=== PATIENT | female | born 1930 | race Caucasian/White ===

== ENCOUNTER 2017-04-07 11:48 | Inpatient (IN) | payer MEDICARE ==
[~2017-04-07] VITALS: Ht 167.6 cm; Wt 72.0 kg
[~2017-04-07 11:48] MED LIST: ACTONEL35 MG OR; CALCIUM D- OR; CALCIUM600 M3 OR; CHILD ASA81 MG OR; DIGOXIN0.05 MG/ML OR; DILTIAZEM120 M3 OR; FISH OIL1000 MG OR; FOSAMAX70 MG OR; FOSINOPRIL10 MG OR; LANOXIN0.25 MG OR; LIPITOR10 MG OR; VITAMIN C500 M1 OR; ZOCOR20 MG OR
[2017-04-07 12:30] VITALS: BP 140/70
[2017-04-07 13:31] LABS: HEMOGLOBIN 9.5 g/dl (12.0-16.0); IMMATURE GRANULOCYTES 1.5 % (0.0-1.0); MEAN CELL VOLUME 89.3 fL CALC (80.0-100.0); MEAN CORPUSCULAR HGB 28.3 pG CALC (26.0-32.0); MEAN CORPUSCULAR HGB CONC 31.7 g/L CALC (32.0-36.0); NEUT# 11.42 thou/uL (2.00-7.15); RED BLOOD COUNT 3.36 mill/uL (4.20-5.60); RED CELL DISTRI WIDTH 16.3 % (11.5-15.5)
[2017-04-07 13:50] LABS: ALBUMIN 3.2 g/dL (3.2-5.0); BILIRUBIN, TOTAL 0.6 mg/dL (0.0-1.4); CALCIUM 8.5 mg/dL (8.4-10.2); TOTAL PROTEIN 6.3 g/dL (6.3-8.2)
[2017-04-07 13:51] LABS: PROTHROMBIN TIME 11.3 SECONDS (9.0-12.5)
[2017-04-07 13:58] LABS: CREATININE 5.6 mg/dL (0.5-1.0); POTASSIUM 5.3 mmol/l (3.5-5.1)
[2017-04-07 14:58] VITALS: BP 178/67
[2017-04-07 15:40] LABS: URINE BILIRUBIN - DIPSTICK NEGATIVE (NEGATIVE); URINE BLOOD DIPSTICK LARGE (NEGATIVE); URINE CLARITY CLEAR; URINE COLOR YELLOW; URINE GLUCOSE - DIPSTICK NEGATIVE (NEGATIVE); URINE KETONE NEGATIVE (NEGATIVE); URINE LEUK ESTERASE NEGATIVE (NEGATIVE); URINE NITRITE - DIPSTICK NEGATIVE (Negative); URINE PROTEIN - DIPSTICK >=300 mg/dL (NEG-TRACE); URINE UROBILINOGEN - DIPSTICK 0.2 E.U./dL (0.2)
[2017-04-07 15:52] LABS: URINE BACTERIA FEW hpf; URINE RBC 25-50 RBC/hpf (0-5); URINE YEAST FEW hpf
[2017-04-07] MEDS ORDERED: AMLODIPINE BESYL5 MG PO (16:02)
[2017-04-07] MEDS ORDERED: COZAAR100 MG PO (16:02)
[2017-04-07] MEDS ORDERED: ASPIRIN EC325 MG PO (16:03)
[2017-04-07] MEDS ORDERED: COREG25 MG PO (16:03)
[2017-04-07 19:35] VITALS: BP 144/52
[2017-04-08] VITALS (10 sets, daily range): BP systolic 150–166; BP diastolic 56–75
[2017-04-08 07:16] LABS: HEMATOCRIT 25.8 % (37.0-47.0); HEMOGLOBIN 8.3 g/dl (12.0-16.0); IMMATURE GRANULOCYTES 1.6 % (0.0-1.0); MEAN CELL VOLUME 89.9 fL CALC (80.0-100.0); MEAN CORPUSCULAR HGB 28.9 pG CALC (26.0-32.0); MEAN CORPUSCULAR HGB CONC 32.2 g/L CALC (32.0-36.0); NEUT# 8.41 thou/uL (2.00-7.15); RED BLOOD COUNT 2.87 mill/uL (4.20-5.60); RED CELL DISTRI WIDTH 16.3 % (11.5-15.5)
[2017-04-08 07:28] LABS: MAGNESIUM 2.3 mg/dL (1.6-2.3)
[2017-04-08 07:31] LABS: CALCIUM 7.7 mg/dL (8.4-10.2); POTASSIUM 5.1 mmol/l (3.5-5.1)
[2017-04-08 07:33] LABS: CREATININE 5.6 mg/dL (0.5-1.0)
== END 2017-04-08 13:54 | DRG 683 ==
LOC: MS2 11:48 → ICU 04-08 10:25
PROVIDERS: ADMIT Internal Medicine; ATTEND Internal Medicine
DX: N17.0 Acute kidney failure with tubular necrosis (principal); N39.0 Urinary tract infection, site not specified; E87.2 Acidosis; M06.9 Rheumatoid arthritis, unspecified; T37.0X5A Adverse effect of sulfonamides, initial encounter; I10 Essential (primary) hypertension; E78.5 Hyperlipidemia, unspecified; H35.30 Unspecified macular degeneration; I49.9 Cardiac arrhythmia, unspecified; R06.4 Hyperventilation; Z95.0 Presence of cardiac pacemaker; Z87.440 Personal history of urinary (tract) infections

== ENCOUNTER 2018-03-28 15:37 | Emergency (ER) | payer MEDICARE ==
[~2018-03-28] VITALS: Ht 167.6 cm; Wt 54.0 kg
[~2018-03-28 15:37] MED LIST changes: +AMLODIPINE BESYL5 MG PO; +ASPIRIN EC325 MG PO; +COREG25 MG PO; +COZAAR100 MG PO
[2018-03-28 17:49] VITALS: BP 152/52
== END 2018-03-28 18:00 | disposition home or self-care (01) ==
LOC: ED 15:37
DX: S70.01XA Contusion of right hip, initial encounter (principal); S80.212A Abrasion, left knee, initial encounter; S80.211A Abrasion, right knee, initial encounter; I10 Essential (primary) hypertension; W19.XXXA Unspecified fall, initial encounter; Y92.009 Unspecified place in unspecified non-institutional (private) residence as the place of occurrence of the external cause

== ENCOUNTER 2018-04-17 14:19 | Emergency (ER) | payer MEDICARE ==
[~2018-04-17] VITALS: Ht 167.6 cm; Wt 54.5 kg
[2018-04-17 15:08] LABS: IMMATURE GRANULOCYTES 0.5 % (0.0-1.0); MEAN CORPUSCULAR HGB 26.3 pG CALC (26.0-32.0); MEAN CORPUSCULAR HGB CONC 30.2 g/L CALC (32.0-36.0); NEUT# 6.09 thou/uL (2.00-7.15); RED BLOOD COUNT 2.7 mill/uL (4.20-5.60); RED CELL DISTRI WIDTH 18.4 % (11.5-15.5)
[2018-04-17 15:12] LABS: HEMATOCRIT 23.5 % (37.0-47.0); HEMOGLOBIN 7.1 g/dl (12.0-16.0)
[2018-04-17 15:27] LABS: INTERNATIONAL NORMALIZED RATIO 1.1 RATIO (0.7-1.3); PROTHROMBIN TIME 12.4 SECONDS (9.0-12.5)
[2018-04-17 15:28] LABS: ALBUMIN 3.6 g/dL (3.2-5.0); BILIRUBIN, TOTAL 0.8 mg/dL (0.0-1.4); MAGNESIUM 2.2 mg/dL (1.6-2.3); TOTAL PROTEIN 7.6 g/dL (6.3-8.2)
[2018-04-17 15:29] LABS: CREATININE 3.2 mg/dL (0.5-1.0); POTASSIUM 3.8 mmol/l (3.5-5.1)
[2018-04-17 18:53] VITALS: BP 151/54
== END 2018-04-17 18:30 ==
LOC: ED 14:19 → ED-I 15:40 → ED 18:30
DX: I13.2 Hypertensive heart and chronic kidney disease with heart failure and with stage 5 chronic kidney disease, or end stage renal disease (principal); I50.9 Heart failure, unspecified; N18.6 End stage renal disease; D64.9 Anemia, unspecified; Z99.2 Dependence on renal dialysis

== ENCOUNTER 2018-04-30 23:31 | Emergency (ER) | payer MEDICARE ==
[~2018-04-30] VITALS: Ht 167.6 cm; Wt 58.0 kg
[2018-05-01] MEDS ORDERED: PERCOCET 5/325M1 TAB PO (01:28)
[2018-05-01 01:40] VITALS: BP 153/53
== END 2018-05-01 01:40 | disposition home or self-care (01) ==
LOC: ED 23:31
DX: S22.41XA Multiple fractures of ribs, right side, initial encounter for closed fracture (principal); J90 Pleural effusion, not elsewhere classified; R18.8 Other ascites; M62.830 Muscle spasm of back; Z95.0 Presence of cardiac pacemaker; W13.8XXA Fall from, out of or through other building or structure, initial encounter; Y93.01 Activity, walking, marching and hiking; Y92.009 Unspecified place in unspecified non-institutional (private) residence as the place of occurrence of the external cause